=== PATIENT | female | born 1965 | race Two or more races ===

== ENCOUNTER 2020-12-24 10:36 | Outpatient (CLI) | payer OTHER | END 2020-12-24 10:38 | disposition home or self-care (01) | LOC: NUCLEAR 10:36 | DX: I73.9 Peripheral vascular disease, unspecified (principal); I87.2 Venous insufficiency (chronic) (peripheral) ==

== ENCOUNTER → 2020-12-25 | Outpatient (CLI) | payer OTHER | END | disposition home or self-care (01) | LOC: NUCLEAR 09:37 | DX: I73.9 Peripheral vascular disease, unspecified (principal) ==